=== PATIENT | female | born 1955 | race African-American/Black ===

== ENCOUNTER → 2016-10-19 | Outpatient (CLI) | payer OTHER ==
[~2016-10-19] MED LIST: B-COMPLEX-VITA1 EACH; CALCIUM 600 MG1 EAC2 PO; CLONIDINE HCL0.2 M2 PO; ESTRACE1 MG PO; IBUPROFEN 800800 M1 PO; METFORMIN HCL500 MG; NEURONTIN 300300 M1 PO; PANTOPRAZOLE SO40 M1 PO; SYNTHROID50 MCG PO; TRAZODONE HCL100 MG; VIIBRYD10 MG; VITAMIN E400 UNI6 PO
== END ==
LOC: ULTRA 06:19
DX: D18.09 Hemangioma of other sites (principal)

== ENCOUNTER → 2017-04-26 | Outpatient (CLI) | payer OTHER | LOC: RAD 14:56 | DX: Z12.31 Encounter for screening mammogram for malignant neoplasm of breast (principal) ==

== ENCOUNTER → 2017-05-04 | Outpatient (CLI) | payer OTHER ==
[~2017-05-04] VITALS: Ht 157.5 cm; Wt 88.0 kg
[~2017-05-04] MED LIST changes: +ASPIR 8181 MG PO; +CELEXA20 MG PO; +FLAX SEED OIL1000 MG PO; +VITAMIN A8000 UNI1 PO; +VITAMIN B-12500 MCG PO; +VITAMIN B-6100 MG PO; +[UNRECOGNIZED DRUG - REMARK] PO
--- NOTE | ~2017-05-04 | P ---
[facility] [place] [address] PROCEDURE REPORT Name: RONNI REYES Room #: REG [employer] [facility]#: [id number] Admission: 05/04/17 Attend Phys: Martin Montaño MD Discharge: Date of : 51 Report #: [id number] THIS REPORT FOR: //name// CC: Martin Haynes MD BRIEF HISTORY: The patient is a 61-year-old woman with history of abdominal pain with increased pain in the epigastrium. She also has intermittent solid food dysphagia. It is noted she does use a proton pump inhibitor daily, which controls her typical reflux symptoms. PREOPERATIVE DIAGNOSES: 1. Epigastric pain. 2. Dysphagia. POSTOPERATIVE DIAGNOSES: 1. Diffuse chronic gastritis, nonulcerative 2. Solid food dysphagia. MEDICATIONS: Deep sedation with propofol per anesthesia. SPECIMEN: None. ESTIMATED BLOOD LOSS: None. PROCEDURE: EGD and Pack dilation. FINDINGS: Prior to propofol sedation, procedure of upper endoscopy was reviewed with the patient as well as potential risks and its complications. She indicates she understands and desires to proceed. DESCRIPTION OF PROCEDURE: With the patient in left lateral decubitus position, the Chargebacki video endoscope was inserted in the cervical esophagus under direct vision without difficulty. Examination of this organ through its entire length revealed normal esophageal mucosa down the squamocolumnar junction. Squamocolumnar junction was inspected and noted to be unremarkable. She reports episode of intermittent solid food dysphagia, particularly for breads. No strictures, masses, rings were seen. There was no endoscopic evidence of eosinophilic esophagitis. A hiatus hernia was not seen. Scope was advanced in the stomach, was examined on end view as well as retroflexed views. There was pattern of a diffuse gastritis with erythema mostly in the antrum of the stomach, no ulcers or erosions were seen. Previous biopsies were negative for H. pylori and those were not repeated today. Examination of the remainder of the stomach on end views as well as retroflexed views otherwise revealed normal mucosa other than the antrum. There were no solids or liquids retained in the stomach in this diabetic patient. The pylorus was normal. Duodenal bulb was [facility] [address] [place] [address] PROCEDURE REPORT Name: RONNI RYEES Room #: REG [facility].#: [id number] Admission: 05/04/17 Attend Phys: Martin Montaño MD Discharge: Date of : 51 Report #: [id number] normal. Postbulbar duodenal sweep down to the third portion was unremarkable as well. At that point, the scope was slowly withdrawn and careful circumferential views confirmed the above findings. The patient tolerated the procedure well. Following the procedure, the patient was dilated with passage of a 52-Djiboutian Pack dilator. There was no resistance. CONDITION OF THE PATIENT UPON DISCHARGE: Following procedure, the patient drowsy and arousable, will be discharged home when fully ambulatory. INSTRUCTIONS TO THE PATIENT AND FAMILY AT THE TIME OF DISCHARGE: I do not see evidence of ulcer disease. Her pain is a short lived and lasts only several minutes, this pain may not even be gastrointestinal in etiology. It may be arising from her abdominal wall or neuropathy in a patient with diabetes. She should continue her pantoprazole in lowest dose to control her symptoms. We will empirically give her Levsin sublingual to use as needed for these pains. However, the pains do not last all that long and the Levsin may be of minimal benefit, but will ____ for this patient. If symptoms do not improve, she is to return to see me in followup in the office. Otherwise, she will return to the care of Dr. Cindi Haynes. <ELECTRONICALLY SIGNED> By: Martin Montaño MD 05/04/17 1108 [id number] 0833 Martin Montaño MD /nt
== END | disposition home or self-care (01) ==
LOC: GI 06:30
DX: K29.50 Unspecified chronic gastritis without bleeding (principal); R13.19 Other dysphagia; E11.9 Type 2 diabetes mellitus without complications; K21.9 Gastro-esophageal reflux disease without esophagitis; Z98.890 Other specified postprocedural states; Z87.891 Personal history of nicotine dependence; Z90.710 Acquired absence of both cervix and uterus; Z79.82 Long term (current) use of aspirin
CPT/HCPCS: 62110; 62900

== ENCOUNTER → 2017-11-26 | Outpatient (CLI) | payer OTHER | LOC: ULTRA 06:21 | DX: M79.604 Pain in right leg (principal) ==

== ENCOUNTER 2018-04-29 12:04 | Emergency (ER) | payer OTHER ==
[~2018-04-29] VITALS: Ht 157.5 cm; Wt 68.5 kg
--- NOTE | ~2018-04-29 | EKG ---
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
[2018-04-29 13:21] LABS: ABSOLUTE NEUTROPHILS 3.2 thou/uL (1.4-8.2); BASOPHILS 1.1 % (0.0-2.0); EOSINOPHILS 3.7 % (0.0-3.0); HEMATOCRIT 39.1 % (37.0-47.0); HEMOGLOBIN 13.4 gm/dL (12.0-15.0); LYMPHOCYTES 34.8 % (24.0-44.0); MCH 30.3 pg (26.0-34.0); MCHC 34.2 g/dL (28.0-37.0); MCV 88.6 fL (80.0-100.0); MONOCYTES 7.4 % (1.0-8.0); PLATELET COUNT 330 thou/uL (150-400); RBC 4.42 mil/uL (4.20-5.00); RDW 13.5 % (10.5-14.5)
[2018-04-29 13:25] LABS: CALCIUM 9.9 mg/dL (8.5-10.1); CREATININE 1.1 mg/dL (0.6-1.0); POTASSIUM 4.9 mmol/L (3.5-5.1)
[2018-04-29 13:29] LABS: URINE BILIRUBIN NEGATIVE (Negative); URINE BLOOD NEGATIVE (Negative); URINE CLARITY CLEAR; URINE COLOR YELLOW; URINE GLUCOSE-RANDOM* NEGATIVE (Negative); URINE KETONES NEGATIVE (Negative); URINE LEUKOCYTES-REFLEX NEGATIVE (Negative); URINE NITRITE-REFLEX NEGATIVE (Negative); URINE PROTEIN (DIPSTICK) NEGATIVE (Negative); URINE UROBILINOGEN 0.2 E.U./dl (0.2-1.0)
[2018-04-29 13:31] LABS: ALBUMIN 3.7 g/dL (3.4-5.0); TOTAL BILIRUBIN 0.2 mg/dL (<0.1-1.0); TOTAL PROTEIN 8.1 g/dL (6.4-8.2)
[2018-04-29] MEDS ORDERED: HYDROCODONE-AP1 EAC6 PO (14:33)
== END 2018-04-29 15:45 | disposition home or self-care (01) ==
LOC: ER 12:04
PROVIDERS: Physician Assistant
DX: R10.32 Left lower quadrant pain (principal); R11.0 Nausea; Z90.710 Acquired absence of both cervix and uterus

== ENCOUNTER 2018-05-04 10:55 | Inpatient (IN) | payer OTHER ==
[~2018-05-04] VITALS: Ht 157.5 cm; Wt 92.6 kg
--- NOTE | ~2018-05-04 | EKG ---
[address] [address] ELECTROCARDIOGRAM REPORT Name: RONNI REYES Room #: 227-P ADM IN M.R.#: [id number] Admission: 05/04/18 Attend Phys: Saqib Chavez MD Discharge: Date of : 51 Report #: [id number] THIS REPORT FOR: //name// [facility] ED Test Date: 2018-05-04 Test Time: 11:30:27 Pat Name: RONNI REYES Department: Room: 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
[~2018-05-04 10:55] MED LIST changes: +HYDROCODONE-AP1 EAC6 PO
[2018-05-04 11:00] VITALS: BP 170/84
[2018-05-04 11:21] LABS: URINE BILIRUBIN NEGATIVE (Negative); URINE BLOOD NEGATIVE (Negative); URINE CLARITY CLEAR; URINE COLOR YELLOW; URINE GLUCOSE-RANDOM* NEGATIVE (Negative); URINE KETONES NEGATIVE (Negative); URINE LEUKOCYTES-REFLEX NEGATIVE (Negative); URINE NITRITE-REFLEX NEGATIVE (Negative); URINE PROTEIN (DIPSTICK) NEGATIVE (Negative); URINE SPECIFIC GRAVITY 1.015 (1.005-1.035); URINE UROBILINOGEN 0.2 E.U./dl (0.2-1.0)
[2018-05-04 11:52] LABS: ABSOLUTE NEUTROPHILS 2.8 thou/uL (1.4-8.2); BASOPHILS 1.9 % (0.0-2.0); EOSINOPHILS 5.2 % (0.0-3.0); HEMATOCRIT 38.5 % (37.0-47.0); HEMOGLOBIN 13.1 gm/dL (12.0-15.0); LYMPHOCYTES 29.5 % (24.0-44.0); MCH 29.8 pg (26.0-34.0); MCHC 33.9 g/dL (28.0-37.0); MCV 87.7 fL (80.0-100.0); MONOCYTES 8.1 % (1.0-8.0); PLATELET COUNT 344 thou/uL (150-400); POLYS 55.3 % (36.0-66.0); RBC 4.39 mil/uL (4.20-5.00); RDW 13.7 % (10.5-14.5); WBC 5.1 thou/uL (4.0-11.0)
[2018-05-04 11:55] LABS: CALCIUM 9.4 mg/dL (8.5-10.1); CREATININE 1.1 mg/dL (0.6-1.0); POTASSIUM 4.5 mmol/L (3.5-5.1)
[2018-05-04 12:01] LABS: ALBUMIN 3.7 g/dL (3.4-5.0); TOTAL BILIRUBIN 0.4 mg/dL (<0.1-1.0); TOTAL PROTEIN 8.3 g/dL (6.4-8.2)
[2018-05-04 13:48] VITALS: BP 166/86
[2018-05-04 14:08] VITALS: BP 164/79
[2018-05-04 14:45] VITALS: BP 135/82
[2018-05-04 20:00] VITALS: BP 186/94
[2018-05-05 05:34] LABS: HEMATOCRIT 36.6 % (37.0-47.0); HEMOGLOBIN 12.4 gm/dL (12.0-15.0); MCH 30.1 pg (26.0-34.0); MCHC 33.9 g/dL (28.0-37.0); MCV 88.9 fL (80.0-100.0); RBC 4.12 mil/uL (4.20-5.00); RDW 13.8 % (10.5-14.5); WBC 5.9 thou/uL (4.0-11.0)
[2018-05-05 05:41] LABS: CALCIUM 8.8 mg/dL (8.5-10.1); CREATININE 1.2 mg/dL (0.6-1.0); POTASSIUM 4.8 mmol/L (3.5-5.1)
[2018-05-05 08:00] VITALS: BP 158/95
[2018-05-05 13:55] VITALS: BP 153/80
[2018-05-05 21:00] VITALS: BP 164/83
[2018-05-06 07:29] LABS: HEMATOCRIT 34.4 % (37.0-47.0); MCHC 34.8 g/dL (28.0-37.0); RBC 3.86 mil/uL (4.20-5.00); RDW 13.8 % (10.5-14.5); WBC 8.7 thou/uL (4.0-11.0)
[2018-05-06 07:51] LABS: CALCIUM 8.7 mg/dL (8.5-10.1); CREATININE 1.2 mg/dL (0.6-1.0)
[2018-05-06 08:28] VITALS: BP 153/83
[2018-05-06 21:12] VITALS: BP 185/93
[2018-05-06 21:48] VITALS: BP 142/80
[2018-05-07 07:30] VITALS: BP 173/72
[2018-05-07] MEDS ORDERED: FLEXERIL PO (13:51)
[2018-05-07] MEDS ORDERED: PERCOCET PO (13:52)
[2018-05-07] MEDS ORDERED: MIRALAX17 GM PO (13:52)
[2018-05-07] MEDS ORDERED: PREDNISONE 20 M20 MG PO (13:53)
[2018-05-07 14:16] VITALS: BP 173/72
== END 2018-05-07 15:56 | disposition home or self-care (01) | DRG 392 ==
LOC: ER 10:55 → SICU 13:16 → EROBS 13:16 → 4W 14:16 → SICU 05-05 13:45 → ENTRNSPT 05-07 15:07 → EDTRNSPTSTS 05-07 15:18 → SICU 05-07 15:56
PROVIDERS: Hospitalist; Nurse Practitioner Family
DX: R10.32 Left lower quadrant pain (principal); E11.9 Type 2 diabetes mellitus without complications; I10 Essential (primary) hypertension; M54.5 Low back pain; F32.9 Major depressive disorder, single episode, unspecified; M25.552 Pain in left hip; D18.03 Hemangioma of intra-abdominal structures; K21.9 Gastro-esophageal reflux disease without esophagitis; E03.9 Hypothyroidism, unspecified; Z87.891 Personal history of nicotine dependence; Z23 Encounter for immunization; Z80.0 Family history of malignant neoplasm of digestive organs; Z90.710 Acquired absence of both cervix and uterus; Z79.899 Other long term (current) drug therapy; Z79.82 Long term (current) use of aspirin
CPT/HCPCS: 10040; 15002

== ENCOUNTER → 2018-06-26 | Outpatient (CLI) | payer OTHER ==
[~2018-06-26] VITALS: Ht 157.5 cm; Wt 87.1 kg
[~2018-06-26] MED LIST changes: +FLEXERIL PO; +LIDOCAINE1 EACH TRANSDERM; +LOSARTAN POTASS50 MG PO; +LYRICA 50 MG50 MG PO; +MIRALAX17 GM PO; +PERCOCET PO; +PREDNISONE 20 M20 MG PO
--- NOTE | ~2018-06-26 | HPC ---
[facility] [address] [place] [address] PAIN MANAGEMENT CONSULTATION Name: RONNI REYES Room #: REG [facility] Madi.#: [id number] Admission: 06/26/18 Attend Phys: Wilbert Saldana DO Discharge: Date of : 51 Report #: [id number] THIS REPORT FOR: //name// CC: Wilbert Haynes DATE OF SERVICE: 06/26/2018 CHIEF COMPLAINT: Low back pain and left lower extremity pain with paresthesias. HISTORY OF PRESENT ILLNESS: As you know, the patient is a 62-year-old female who reports acute onset of low back pain, left buttock, posterolateral thigh pain radiating down the leg that began in 04/2018. She denies specific injury or trauma that may have led to symptom occurrence. The patient states her pain became intense enough that she was seen at the Emergency Department at [facility]. Workup indicated that her symptoms were likely related to lumbar radiculopathy. She underwent MRI of the lumbar spine, which showed mild lumbar spine degenerative changes most significant at the L4-L5 level with minimally asymmetric disk bulging on the left, neural foramen were well maintained, central canal was only mildly narrowed. This was believed to be a source of the patient's symptoms. She has trialed conservative medical therapy, which has been ineffective at treating symptoms. Due to lack of improvement, the patient was subsequently referred to our clinic to discuss the possibility of more aggressive treatment options for lumbar radicular symptoms. The patient indicates today pain is continuous and constant, describes the pain as shooting, sharp, stabbing, numbness, tingling, burning and electrical in sensation. She places current pain score 5/10, daily average at 8/10 and worst pain has been is 8/10. The patient states that walking, standing and movement exacerbates symptoms, nothing appears to improve pain. She has been referred to our service to discuss possible treatment for lumbar radicular symptoms. PAST MEDICAL HISTORY: 1. Gastroesophageal reflux disease. 2. Hypothyroidism. 3. Depression. 4. Diabetes mellitus type 2. 5. Peptic ulcer disease. PAST SURGICAL HISTORY: Hysterectomy. SOCIAL HISTORY: The patient denies tobacco, alcohol, IV or illicit drug use. 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 She has been out of the work force for nearly 6 weeks. She is trying to obtain the disability income. She is not in litigation in regards to pain. [address] [address] PAIN MANAGEMENT CONSULTATION Name: RONNI REYES Room #: REG CLI [facility]#: [id number] Admission: 06/26/18 Attend Phys: Wilbert Saldana DO Discharge: Date of : 51 Report #: [id number] REVIEW OF SYSTEMS: Positive for decrease in appetite, fatigue and weakness, headaches, night sweats, chronic sinus problems with rhinitis, nosebleeds, chest pain, loss of appetite, nausea, depression, insomnia, low back pain, left lower extremity pain and paresthesias. All other review of systems negative per 12-point review of systems other than those listed in the history of present illness. Pain impact score 40/70 indicating moderate interference of daily activities secondary to pain. ALLERGIES: No known drug allergies. CURRENT MEDICATIONS: Losartan 50 mg once a day, prednisone 20 mg per day, MiraLax 17 grams per day, oxycodone 5/325 one tab every 6 hours p.r.n. for pain, Allergy Relief 1 tab per day, aspirin 81 mg per day, flaxseed oil 1000 mg per day, citalopram 40 mg per day, vitamin A 8000 units per day, vitamin B6 100 mg per day, cyanocobalamin 500 mcg per day, vitamin E complex 1 tab per day, calcium carbonate 1 tab per day, clonidine 0.2 mg p.o. at bedtime, levothyroxine 50 mcg per day and pantoprazole 40 mg per day. IMAGING: MRI of the lumbar spine obtained on 05/06/2018 shows T12-L1 unremarkable. L2-L3 shows no focal disk protrusion, no central canal neural foraminal stenosis, there is mild ligamentum flavum hypertrophy, minimal facet degenerative changes. L3-L4 shows mild disk bulge, mild facet arthropathy, bilateral ligamentum flavum hypertrophy, no central canal neural foraminal stenosis. L4-L5, diffuse disk bulging, minimally asymmetric to the left, neural foramen are well maintained, central canal is minimally narrowed to 10 mm at the lower levels of normal, bilateral facet degenerative changes noted, ligamentum flavum hypertrophy, small synovial cyst at bilateral levels. L5-S1, no focal disk protrusion, no central canal neural foraminal stenosis. PHYSICAL EXAMINATION: VITAL SIGNS: Blood pressure 136/73, pulse 86, respiratory rate 16 and unlabored. The patient is 98% on room air. Height 5 feet 2 inches tall, weight 192 pounds and BMI calculated 35.1. GENERAL: Well-developed, well-nourished, well-hydrated exogenously obese 62-year-old female appearing stated age, placing current pain score around 6/10. HEENT: Normocephalic and atraumatic. Pupils are equal, round and reactive to light. Extraocular muscles are intact. Sclerae are nonicteric without injection. NEUROLOGIC: Cranial nerves 2-12 grossly intact. Speech is fluent. The patient deemed a fair historian. LUNGS: Clear, no wheeze, rhonchi or rales. CARDIOVASCULAR: Regular. No appreciable gallop or rub. ABDOMEN: Soft, obese, nontender, nondistended, normoactive bowel sounds. [facility] [address] [place] [address] PAIN MANAGEMENT CONSULTATION Name: RONNI REYES Room #: REG [facility].#: [id number] Admission: 06/26/18 Attend Phys: Wilbert Saldana DO Discharge: Date of : 51 Report #: [id number] EXTREMITIES: Show no clubbing, no cyanosis and no edema. MUSCULOSKELETAL: Lower extremity strength appears equal and symmetrical 5/5, intact to light touch from L1 through S2 dermatomes. Seated straight leg raising is negative. Supine straight leg raising is mildly positive on the left. Edwin's test is negative. Modified Gaenslen's positive for axial low back pain. Ankle clonus is negative. Babinski is negative. Gait is antalgic favoring the left lower extremity over right. The patient is using a roller walker that is unprescribed for ambulation. Muscle bulk and tone is symmetrical in the lower extremities. Lumbar provocation testing including extension, rotation and lateral flexion all intensify axial back pain and no radiation of symptoms. ASSESSMENT: 1. Suspected lumbar radiculopathy. 2. Mildly displaced lumbar intervertebral disk with radiculopathy. 3. Mild lumbosacral spondylosis with radiculopathy. 4. Mild degeneration of the lumbar spine. 5. Chronic intractable pain. PLAN: 1. The patient has been referred to our service for evaluation for suspected lumbar radiculopathy. The patient has mild changes in the lumbar spine, the most significant being at the L4-L5 level, which shows a diffuse disk bulging and a minimal asymmetrical finding on the left. There was also noted some arthritic changes that have been longstanding as well as ligamentum flavum hypertrophy, which is also longstanding. Based on the physical exam and history the patient is providing as well as the distribution of symptoms, she appears to be suffering from lumbar radicular symptoms. She has been evaluated both at the Emergency Department and through her PCP and has noted no improvement in symptoms. She was subsequently referred to our service to discuss the possible treatment options for lumbar radicular symptoms. We discussed the following with the patient today. We discussed physical therapy, stretching exercise, core strengthening and a concerted effort at weight loss. We discussed medication management adding neuropathic pain medications to her current medication regimen. We discussed epidural injection under fluoroscopic guidance as a treatment option. Given the findings on MRI, she is not a surgical candidate. After reviewing the risks and benefits of all proposed treatment options, the patient chose to move forward with a lumbar epidural injection under fluoroscopic guidance. 2. The patient was advised that third alliance party payer restrictions require that authorization be obtained before the patient could undergo an epidural injection. Authorization could take anywhere from 4-7 working days. We will begin this process immediately and contact the patient once we have this authorization, so she can undergo the first in the series of epidural injections. [address] [address] PAIN MANAGEMENT CONSULTATION Name: RONNI REYES Room #: REG CLI [facility]#: [id number] Admission: 06/26/18 Attend Phys: Wilbert Saldana DO Discharge: Date of : 51 Report #: [id number] 3. The patient will be started on samples of Lyrica. We have given her a 50 mg tablet. She is to take 1 tab p.o. at bedtime, one hour before bedtime for the next 3 nights, if no improvement in symptoms and no side effects, she is to escalate dose to 100 mg or 2 tablets at night, one hour before bedtime. No improvement in symptoms and no side effects, then escalate to 150 mg. She was given samples to be able to titrate as directed. The patient was advised to watch for side effects of this medication including somnolence, decreased mental acuity, disorientation and confusion as well as increasing depression. If she notes any side effects, discontinue immediately. If no improvement in symptoms, continue the titration as directed. 4. We will see the patient back in followup visit once we have achieved authorization for the patient to undergo epidural injection under fluoroscopic guidance to address lumbar radicular symptoms. 5. We wish to thank Dr. Haynes for the referral of this patient to our clinic. We will keep you apprised of her response to treatment as we address her lumbar radicular symptoms. We will provide you with any suggested changes in medication therapy as necessary. Again, we wish to thank you for the opportunity to see the patient in consultation. By: 1008 1134 Wilbert Saldana DO /giuliana
[2018-06-26 08:49] VITALS: BP 136/73
== END ==
LOC: PAIN 07:56
DX: M47.27 Other spondylosis with radiculopathy, lumbosacral region (principal); M51.16 Intervertebral disc disorders with radiculopathy, lumbar region; G89.4 Chronic pain syndrome; K21.9 Gastro-esophageal reflux disease without esophagitis; E03.9 Hypothyroidism, unspecified; E11.9 Type 2 diabetes mellitus without complications

== ENCOUNTER → 2018-06-28 | Outpatient (CLI) | payer OTHER ==
[~2018-06-28] VITALS: Ht 157.5 cm; Wt 87.1 kg
--- NOTE | ~2018-06-28 | PATH ---
[facility] [address] [place] [address] PATHOLOGY RPT PROCEDURE Name: RONNI REYES Room #: REG [facility] M.R.#: [id number] Admission: 06/28/18 Date of : 51 Discharge: Report #: [id number] Path Case #: [id number] [facility] Accession Number: [id number] . 01 Material submitted: . MID ASCENDING COLON POLYP X3 . 01 Clinical history: . Pre-OP DX: Family HX colon cancer . 02 Diagnosis: Polyp x 3, mid ascending colon polyp, endoscopic biopsy: - Tubular adenoma in two fragments. - Negative for high grade dysplasia. (IUV/db; 07/01/18) LBQ/07/01/2018 . 02 Electronically signed: . Kanchan Marcus MD, Pathologist NPI- [id number] . 01 Gross description: . Received in formalin labeled "Ronni Reyes, mid ascending polyp," are 5 segments of bill soft tissue measuring 1.5 x 1.3 x 0.3 cm in aggregate dimensions and ranging from 0.3 to 0.7 cm in maximum dimension. The specimen is submitted entirely in cassette A1. (TSD; 06/28/2018) TOB/TOB . 02 Pathologist provided ICD-10: D12.2 . 02 CPT . 913488 Specimen Comment: A courtesy copy of this report has been sent to Specimen Comment: [phone], . Specimen Comment: Report sent to / DR LAWLER Performed at: [address], [place], [place] [id number] MD Julius Mccrary MD Phone: [phone] Performed at: [address] [id number] MD Kanchan Marcus MD Phone: [phone]
--- NOTE | ~2018-06-28 | P ---
[facility] [place] [address] PROCEDURE REPORT Name: RONNI REYES Room #: REG [facility]#: [id number] Admission: 06/28/18 Attend Phys: Martin Montaño MD Discharge: Date of : 51 Report #: [id number] THIS REPORT FOR: //name// CC: Martin Haynes MD DATE OF SERVICE: 06/28/2018 BRIEF HISTORY: The patient is a 62-year-old woman with strong family history of colon cancer. Her father had colon cancer when he was in his 50s, 3 aunts have had colon cancer. She also has multiple cousins that have had colon cancer. In addition, her sister had ovarian cancer. As best I know, there has been no genetic testing in the family. PREOPERATIVE DIAGNOSIS: Strong family history of colon cancer. POSTOPERATIVE DIAGNOSIS: Diminutive polyps x 3, mid ascending colon. MEDICATIONS: Deep sedation with propofol per anesthesia. SPECIMEN: Mid ascending colon polyps x 3. ESTIMATED BLOOD LOSS: 3 mL PROCEDURE: Colonoscopy to cecum and terminal ileum with biopsy. FINDINGS: Prior to propofol sedation, procedure of colonoscopy was discussed with the patient as well as potential risks and its complications. She indicates she understands and desires to proceed. DESCRIPTION OF PROCEDURE: With the patient in lateral decubitus position, digital examination was completed, which revealed no abnormalities. Subsequently, the Olympus video colonoscope was introduced in the rectum, advanced under direct vision to the cecum, done with minimal difficulty. The cecum was identified by the ileocecal valve and the appendiceal orifice. I was able to visualize the distal segment of terminal ileum, which was inspected and noted to be unremarkable. At that point, the scope was slowly withdrawn and careful circumferential views were obtained including retroflexing the scope in the ascending colon. Upon slow withdrawal of the scope, there were some limitations of prep. There was some liquidy material and particulate matter scattered throughout the colon. However, with extensive irrigation and suctioning, we were able to obtain a good prep overall. The mucosa was within normal limits, normal vascular pattern, normal light reflex. In the mid ascending colon, 3 diminutive polyps were seen. All 3 were easily removed with biopsy forceps. The scope was further withdrawn and no additional neoplastic [facility] [address] [place] [address] PROCEDURE REPORT Name: RONNI REYES Room #: REG [facility].#: [id number] Admission: 06/28/18 Attend Phys: Martin Montaño MD Discharge: Date of : 51 Report #: [id number] lesions were seen. No additional polyps were seen. The mucosa through the remainder of the colon was normal. Upon retroflexion in the rectum, no abnormalities were seen. Scope was withdrawn. The patient tolerated the procedure. CONDITION OF THE PATIENT UPON DISCHARGE: Following procedure, the patient drowsy, aroused, conversant and will be discharged home when fully ambulatory. INSTRUCTIONS TO THE PATIENT AND FAMILY AT THE TIME OF DISCHARGE: Three diminutive polyps identified and removed today. We will follow up on the path. However, in view of her strong family history, I would suggest she return in 3 years for a colonoscopy. We did discuss the role of genetic testing. This is the first time this patient has had polyps. Unfortunately, with regards to genetics, none of the cancer patients have survived. If her polyp count continues to rise or other family members have high numbers of polyps, genetic testing in that individual may be helpful. She will return to care of Dr. Cindi Haynes and return to see me as needed. Last colonoscopy was 4-1/2 years ago. Withdrawal time from the cecum including cleanup was 19 minutes 58 seconds. <ELECTRONICALLY SIGNED> By: Martin Montaño MD 06/29/18 1030 0941 1030 Martin Montaño MD /nt
== END | disposition home or self-care (01) ==
LOC: GI 05:54
DX: Z12.11 Encounter for screening for malignant neoplasm of colon (principal); Z80.0 Family history of malignant neoplasm of digestive organs; D12.2 Benign neoplasm of ascending colon; K21.9 Gastro-esophageal reflux disease without esophagitis; E11.9 Type 2 diabetes mellitus without complications; E05.90 Thyrotoxicosis, unspecified without thyrotoxic crisis or storm; Z90.710 Acquired absence of both cervix and uterus; Z98.890 Other specified postprocedural states; Z79.899 Other long term (current) drug therapy; Z87.891 Personal history of nicotine dependence; Z80.41 Family history of malignant neoplasm of ovary
CPT/HCPCS: 62110; 62900

== ENCOUNTER → 2018-07-02 | Outpatient (CLI) | payer OTHER ==
[~2018-07-02] VITALS: Ht 157.5 cm; Wt 86.3 kg
--- NOTE | ~2018-07-02 | HPC ---
[facility] [place] [address] PAIN MANAGEMENT CONSULTATION Name: RONNI REYES Room #: REG [facility] MAbner.#: [id number] Admission: 07/02/18 Attend Phys: Wilbert Saldana DO Discharge: Date of : 51 Report #: [id number] THIS REPORT FOR: //name// CC: Wilbert Haynes MD DATE OF SERVICE: 07/02/2018 REFERRING PHYSICIAN: Cindi Haynes MD CHIEF COMPLAINT: Low back pain, left lower extremity pain and paresthesias. HISTORY OF PRESENT ILLNESS: As you know, the patient is a 62-year-old female who reports acute onset of low back pain, left buttock and posterolateral thigh pain radiating down the leg began 04/2018. Denies any specific injury or trauma that may have led to symptom recurrence. She was seen in the Emergency Department at [facility] for ongoing pain issues and subsequently referred to our clinic to discuss options for treatment for suspected lumbar radiculopathy. She was seen in our clinic, 06/26/2018, diagnosed with lumbar radiculopathy, mildly displaced lumbar intervertebral disks, mild lumbosacral spondylosis and mild degeneration of lumbar spine. At that visit, we discussed options for treatment including physical therapy, stretching exercise, core strengthening, medication management, epidural injections and ultimately surgical options. The patient chose to move forward with an epidural injection, but due to third constitution party payer restrictions, we are unable to provide that injection at that visit. We did start the patient on Lyrica 50 mg dose at night with 100% improvement in overall pain. Unfortunately, the patient is reporting elevated blood pressure with the use of medication, though this is not a standard finding from a side effect profile. She discontinued the Lyrica and apparently her blood pressure did improve. Unfortunately, her pain did return. She returns today in followup visit to discuss the possibility of undergoing epidural injection or changes in medication therapy. ALLERGIES: No known drug allergies. CURRENT MEDICATIONS: Losartan, prednisone, MiraLax, oxycodone, Allergy Relief, aspirin, flaxseed oil, citalopram, vitamin A, vitamin B6, cyanocobalamin, vitamin E, calcium carbonate, clonidine, levothyroxine and pantoprazole. SOCIAL HISTORY: The patient denies tobacco, alcohol, IV or illicit drug use. 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 She is unaccompanied today. IMAGING: [place] [address] PAIN MANAGEMENT CONSULTATION Name: RONNI REYES Room #: REG [facility]#: [id number] Admission: 07/02/18 Attend Phys: Wilbert Saldana DO Discharge: Date of : 51 Report #: [id number] PHYSICAL EXAMINATION: VITAL SIGNS: Blood pressure 158/73, pulse 85, respiratory rate 20, unlabored; the patient is 97% on room air. Height 5 feet 2 inches tall, weight 190.2 pounds, BMI calculated 34.8. GENERAL: Well-developed, well-nourished, well-hydrated exogenously obese 62-year-old female appearing stated age, placing current pain score at around 5/10. HEENT: Normocephalic, atraumatic. Pupils equal, round, reactive to light. Extraocular muscles are intact. EXTREMITIES: Show no clubbing, no cyanosis, no edema. MUSCULOSKELETAL: Lower extremity strength symmetrical 5/5, intact to light touch from L1 through S2 dermatomes. Seated straight leg raising negative. Supine straight leg raising mildly positive on the left. ASSESSMENT: 1. Lumbar radiculopathy. 2. Mildly displaced lumbar intervertebral disk with radicular symptoms. 3. Mild lumbosacral spondylosis with radiculopathy. 4. Mild degeneration of lumbar spine. 5. Chronic intractable pain. PLAN: 1. The patient returns today in followup visit having noted excellent benefit with Lyrica near 100% improvement in overall pain, but unfortunately she had an elevated rise in blood pressure. She attributes to the medication. She subsequently discontinued the medication and her blood pressure did "normalize." The patient's blood pressure is still elevated today 158/73, but down from her reported systolic pressure of 200. We have recommended the patient remain off the Lyrica, but unfortunately she was seeing good benefit from pain standpoint with medication. We discussed other options for treatment today including rotating medication to gabapentin in place of the Lyrica, which would likely provide a similar improvement or looking towards the preapproved epidural injection. The patient chose to move forward with gabapentin therapy. She wants to hold off on undergoing epidural injection at this juncture. She wishes to try the gabapentin as she noted excellent benefit with Lyrica. She is hopeful to be able to initiate the medication without side effects. We cautioned the patient about side effects from gabapentin today. She was given information in written form about gabapentin side effects. 2. The patient was started on gabapentin 300 mg dose at night. This is a rough equivalency of 50 mg of Lyrica. The patient will start at the 300 mg dose this evening, continue for 3 nights. No improvement in symptoms and no side effects, I would recommend escalating it to 600 mg dose. If the patient is experiencing side effects at 300 mg dose, she is not to escalate further, she should discontinue the medication entirely. If she is noticing some improvement in [facility] [address] [place] [address] PAIN MANAGEMENT CONSULTATION Name: RONNI REYES Room #: REG [facility] MAbnerR.#: [id number] Admission: 07/02/18 Attend Phys: Wilbert Saldana DO Discharge: Date of : 51 Report #: [id number] symptoms and no side effects, I would recommend escalating to 600 mg. She was given a prescription of gabapentin 300 mg dose, #60 with no refills. 3. We will see the patient back in followup visit, depending on the efficacy of the gabapentin. If she notes good effects with the gabapentin at low dosing, we would be willing to provide the patient with refill of the medication for the foreseeable future. If no improvement in symptoms or side effects, she cannot tolerate, we will see her back to undergo the epidural injection, we have preapproved. By: 1142 [id number] Wilbert Saldana DO /nt
[2018-07-02 10:32] VITALS: BP 158/73
== END ==
LOC: PAIN 10:08
DX: M47.27 Other spondylosis with radiculopathy, lumbosacral region (principal); M51.16 Intervertebral disc disorders with radiculopathy, lumbar region; G89.4 Chronic pain syndrome; Z79.899 Other long term (current) drug therapy

== ENCOUNTER → 2018-07-24 | Outpatient (CLI) | payer OTHER ==
[~2018-07-24] VITALS: Ht 157.5 cm; Wt 84.3 kg
--- NOTE | ~2018-07-24 | HPC ---
[facility] [place] [address] PAIN MANAGEMENT CONSULTATION Name: RONNI REYES Room #: REG [facility] MAbner.#: [id number] Admission: 07/24/18 Attend Phys: Wilbert Saldana DO Discharge: Date of : 51 Report #: [id number] THIS REPORT FOR: //name// CC: Wilbert Haynes MD DATE OF SERVICE: 07/24/2018 REFERRING PHYSICIAN: Cindi Haynes M.D. CHIEF COMPLAINT: Low back pain, left lower extremity pain and paresthesias. HISTORY OF PRESENT ILLNESS: As you know, the patient is a 62-year-old female who had an acute onset of low back pain, left buttock and posterolateral thigh pain began in April 2018. She denied any specific injury or trauma. She was seen in consultation per the request of her primary care physician and started on medication management in the form of Lyrica with 100% improvement in overall pain. Unfortunately, coverage was not available for this medication on her current insurer. We made adjustments with 2 gabapentin but she is reporting side effects that she can tolerate as somnolence, decreased mental acuity, disorientation, confusion and lack of efficacy. She returns today in followup visit to undergo epidural injection under fluoroscopic guidance as she has noted medication management unsuccessful since the discontinuation of the Lyrica. ALLERGIES: No known drug allergies. CURRENT MEDICATIONS: Losartan, MiraLax, oxycodone, Allergy Relief, aspirin, flaxseed oil, citalopram, vitamin A, vitamin B6, cyanocobalamin, vitamin E, calcium carbonate, clonidine, levothyroxine and pantoprazole. SOCIAL HISTORY: The patient denies tobacco, alcohol, IV or illicit drug use. 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 She has not been working over the last 8 weeks. She is unaccompanied today. IMAGING DATA: No new imaging available. PHYSICAL EXAMINATION: VITAL SIGNS: Blood pressure 146/85, pulse 95 AND respiratory rate 16 and unlabored. The patient is 100% on room air. Height 5 feet 2 inches tall, weight 185.8 pounds and BMI calculated 34.0. GENERAL: Well-developed, well-nourished, well-hydrated, exogenously obese 62-year-old female appearing stated age, placing current pain score at 5/10. HEENT: Normocephalic and atraumatic. Pupils equal, round and reactive to light. Extraocular muscles are intact. Sclerae nonicteric without injection. NEUROLOGICAL: Cranial nerves 2 through 12 grossly intact. Speech is fluent. [address] [address] PAIN MANAGEMENT CONSULTATION Name: RONNI REYES Room #: REG [facility]#: [id number] Admission: 07/24/18 Attend Phys: Wilbert Saldana DO Discharge: Date of : 51 Report #: [id number] EXTREMITIES: Show no clubbing, no cyanosis and no edema. MUSCULOSKELETAL: Lower extremity strength is symmetrical again today 5/5. She is intact to light touch from L1 through S2 dermatomes. Seated straight leg raising negative. Supine straight leg raising mildly positive left. Muscle bulk and tone is symmetrical in comparing left lower extremity over right. Gait is normal. ASSESSMENT: 1. Lumbar radiculopathy. 2. Mildly displaced lumbar intervertebral disk with radicular symptoms. 3. Mild lumbosacral spondylosis with radiculopathy. 4. Mild degenerative changes of the lumbar spine. 5. Chronic intractable pain. PLAN: 1. The patient returns today in followup visit to undergo lumbar epidural injection under fluoroscopic guidance. She has been advised of the risks and benefits of this procedure. These risks include but are not necessarily limited to bleeding, bruising, infection, worsening pain, no relief of pain, also risk of temporary or permanent muscle weakness, temporary or permanent nerve damage, possible paralysis and . The patient states understood and wished to proceed. 2. The patient and I did discuss her issues with gabapentin. It is unfortunate that we cannot receive coverage for the Lyrica as the patient noted excellent benefit with this medication. No side effects and 100% improvement in symptoms. We would recommend the patient to contact her third green party payer to discuss the possibility of coverage of this more effective agent. 3. We will see the patient back in followup visit on an as needed basis for next in a series of epidural injections. PROCEDURE NOTE DESCRIPTION OF PROCEDURE: L5-S1 left paramedian epidural steroid injection under fluoroscopic guidance. This is the first procedure of the first series that the patient is undergoing. After obtaining written consent, the patient was taken back to the fluoroscopy suite, placed in a prone position with pillow under the abdomen to decrease lumbar lordosis. The skin overlying the lumbosacral area was then prepped and draped in aseptic fashion. The L5-S1 vertebral interspace was then identified by AP fluoroscopy. The skin and subcutaneous tissue overlying the target site of injection was anesthetized with 3 mL 1% lidocaine. A 20-gauge 4-1/2 inch Tuohy needle was then advanced under fluoroscopic guidance towards the epidural space using a left paramedian approach. The epidural space [address] [address] PAIN MANAGEMENT CONSULTATION Name: RONNI RYEES Room #: REG [facility]#: [id number] Admission: 07/24/18 Attend Phys: Wilbert Saldana DO Discharge: Date of : 53 Report #: [id number] was identified using loss of resistance to air technique. After negative aspiration for heme or cerebrospinal fluid, a total of 1 mL of Omnipaque was injected. A lumbar epidurogram was confirmed using both AP and lateral fluoroscopy. After negative aspiration for heme or cerebrospinal fluid, 5 mL of a solution containing 2 mL 40 mg per mL, 80 mg total triamcinolone, 3 mL lidocaine 1% was injected in increments. Contrast spread was noted posterior epidural space. The needle was then retracted approximately half way and needle tract flushed with 1 mL of 1% lidocaine. Needle was then removed. There were no apparent sensory or motor deficits in the lower extremity following the procedure. A sterile bandage was placed over the injection site. The heart rate, pulse, oximetry and blood pressure were continuously monitored after the procedure. There were no apparent complications. The patient tolerated the procedure well and was carefully escorted to the recovery room in stable condition. There were no apparent complications. After meeting discharge criteria, the patient was then discharged home. By: 0726 0744 Wilbert Saldana DO /nt
[2018-07-24 11:09] VITALS: BP 146/85
--- NOTE | 2018-07-24 11:23 | NUR ---
Pain Clinic Assessment: 1. History of Osteoarthritis: low back History of Rheumatoid Arthritis: Not Applicable 2. Height: 5 ft. 2 in. 157.5 cm. Weight: 185.8 lb. oz. 84.278 kg. Patient's BMI: 34.0 3. Vital Signs: BP: 146/85 Pulse: 95 Resp: 16 Temp: 02 Sat: 100 ECG Mon: 4. Pain Intensity: 5 5. Fall Risk: Dizziness: N Needs help standing or walking: N Fallen in the last 3 months: N Fall risk comments: 6. Patient on Blood Thinner: None 7. History of Hypertension: Y 8. Opioid Therapy greater than 6 weeks: Y Opiate Contract Signed: 9. Risk Assessment Tool Provided: 10. Functional Assessment Tool: 11. Recreational Drug Use: Never Drug Type: Tobacco Use: Former Smoker Tobacco Type: Amount or Packs/day: How Many Years: Alcohol Use: Yes Frequency: Quant:
== END | disposition home or self-care (01) ==
LOC: PAIN 08:48
DX: M54.16 Radiculopathy, lumbar region (principal); M54.5 Low back pain; E11.10 Type 2 diabetes mellitus with ketoacidosis without coma; Z79.899 Other long term (current) drug therapy; Z79.4 Long term (current) use of insulin

== ENCOUNTER 2018-07-27 14:29 | Inpatient (IN) | payer OTHER ==
[~2018-07-27] VITALS: Ht 157.5 cm; Wt 81.3 kg
[2018-07-27] VITALS (15 sets, daily range): BP systolic 113–150; BP diastolic 57–81
[2018-07-27 15:52] LABS: ABSOLUTE NEUTROPHILS 5.6 thou/uL (1.4-8.2); EOSINOPHILS 0.9 % (0.0-3.0); HEMATOCRIT 39.8 % (37.0-47.0); HEMOGLOBIN 13.6 gm/dL (12.0-15.0); LYMPHOCYTES 18.7 % (24.0-44.0); MCH 30.4 pg (26.0-34.0); MCHC 34.1 g/dL (28.0-37.0); MONOCYTES 6.4 % (1.0-8.0); PLATELET COUNT 355 thou/uL (150-400); RBC 4.47 mil/uL (4.20-5.00); RDW 14.4 % (10.5-14.5); WBC 7.7 thou/uL (4.0-11.0)
[2018-07-27 15:55] LABS: URINE BILIRUBIN NEGATIVE (Negative); URINE CLARITY CLEAR; URINE COLOR YELLOW; URINE GLUCOSE-RANDOM* 3+ (Negative); URINE KETONES 2+ (Negative); URINE PROTEIN (DIPSTICK) NEGATIVE (Negative); URINE SPECIFIC GRAVITY <= 1.005 (1.005-1.035)
[2018-07-27 15:56] LABS: URINE BLOOD NEGATIVE (Negative); URINE LEUKOCYTES-REFLEX NEGATIVE (Negative); URINE NITRITE-REFLEX NEGATIVE (Negative); URINE UROBILINOGEN 0.2 E.U./dl (0.2-1.0)
[2018-07-27 16:03] LABS: BE(vivo) -13.9 mmol/L (-2 to +3); HCO3 10.8 mmol/L (22.0-26.0); PCO2 VENOUS 23.4 mmHg (41.0-51.0); PO2 VENOUS 205.7 mmHg (35.0-45.0)
[2018-07-27 16:11] LABS: ANION GAP 23 mmol/L (7-16); BUN 32 mg/dL (7-18); CALCIUM 9.5 mg/dL (8.5-10.1); CHLORIDE 91 mmol/L (98-107); CO2 13 mmol/L (21-32); CREATININE 1.6 mg/dL (0.6-1.0); POTASSIUM 5.3 mmol/L (3.5-5.1); SGOT 21 U/L (15-37); SODIUM 127 mmol/L (136-145); TOTAL BILIRUBIN 0.6 mg/dL (<0.1-1.0); TOTAL PROTEIN 8.6 g/dL (6.4-8.2); TROPONIN-I <0.06 ng/mL (<0.06)
[2018-07-27 16:19] LABS: LIPASE 102 U/L (73-393); MAGNESIUM 2.4 mg/dL (1.8-2.4); SGPT 22 U/L (30-65)
[2018-07-27 16:22] LABS: GLUCOSE 610 mg/dL (74-106)
--- NOTE | 2018-07-27 20:00 | NUR ---
54 Y/O FEMALE PT ADMITTED TO ICU VIA W/C FROM ER WITH DKA. PT IS AWAKE AND ALERT. NEURO INTACT. DENIES PAIN NOR DISCOMFORT. WILL START INSULIN GTT.
[2018-07-27 22:48] LABS: ALBUMIN 3.3 g/dL (3.4-5.0); CALCIUM 8.7 mg/dL (8.5-10.1); CREATININE 1.1 mg/dL (0.6-1.0); TOTAL BILIRUBIN 0.6 mg/dL (<0.1-1.0); TOTAL PROTEIN 6.9 g/dL (6.4-8.2)
[2018-07-27 22:57] LABS: POTASSIUM 4.1 mmol/L (3.5-5.1)
[2018-07-28] VITALS (25 sets, daily range): BP systolic 133–169; BP diastolic 52–89
[2018-07-28 05:22] LABS: HEMATOCRIT 33.8 % (37.0-47.0); HEMOGLOBIN 11.3 gm/dL (12.0-15.0); MCH 29.5 pg (26.0-34.0); MCHC 33.6 g/dL (28.0-37.0); MCV 87.9 fL (80.0-100.0); RBC 3.85 mil/uL (4.20-5.00); RDW 14.2 % (10.5-14.5); WBC 6.9 thou/uL (4.0-11.0)
[2018-07-28 05:30] LABS: CALCIUM 8.7 mg/dL (8.5-10.1); CREATININE 1.1 mg/dL (0.6-1.0); MAGNESIUM 2.1 mg/dL (1.8-2.4); POTASSIUM 3.3 mmol/L (3.5-5.1)
--- NOTE | 2018-07-28 06:00 | NUR ---
PT RESTING QUIETLY. AWAKE AND ALERT. A DELIGHTLY LITTLE LADY. ACCUCHECK 124 INSULIN GTT AT 3 UNITS. UP TO TOILET. UO 1200 CC THIS SHIFT. VSS SINUS RHYTHM WILL CONT TO MONITOR CLOSELY.
[2018-07-28] MEDS ORDERED: LIDOCAINE1 EACH TRANSDERM (08:57)
[2018-07-28] MEDS ORDERED: FLEXERIL PO (08:57)
[2018-07-28] MEDS ORDERED: NEURONTIN 300300 M1 PO (08:57)
[2018-07-28 09:35] LABS: CALCIUM 8.7 mg/dL (8.5-10.1); CREATININE 1.1 mg/dL (0.6-1.0); MAGNESIUM 2.2 mg/dL (1.8-2.4); POTASSIUM 4.4 mmol/L (3.5-5.1)
--- NOTE | 2018-07-28 15:44 | NUR ---
PATIENT ASSESSMENT AND VITAL SIGNS DOCUMENTED. PATIENT INSULIN GTT WAS DISCONTINUED BY PHYSICIAN. GLUCOSE WAS MONITORED ORDERED, INSULIN SC WAS GIVEN. NURSE INFORMED PHYSICIAN OF HIGH READING, ORDERS RECEIVED TO GIVE SSI. THIS WAS DONE. THEN PHYSICIAN EXPRESSED TO START INSULIN GTT. NURSE INFORMED HER THAT SC DOSE WAS GIVEN ORDERED. SHE EXPRESSED CAN WAIT AN HOUR OR TWO TO RESTART INSULIN GTT. NURSE CHECKED PATIENTS BLOOD GLUCOSE THEN HER BLOOD GLUCOSE AND WANTED TO INITIATE THE INSULIN GTT HOWEVER BOTH IV'S WERE NO LONGER PATENT. IV TEAM WAS CALLED AND A NEW IV WAS STARTED. INSULIN GTT IS CURRENTLY INFUSING. ORDERS TO START DEXTROSE FLUIDS ONCE GLUCOSE IS LESS THAN 200. THIS WAS ALL INFORMED TO NEXT ON COMING SHIFT NURSE. PATIENT HAS BEEN KEPT UPDATED THROUGHOUT THE DAY AND HER DISCHARGE HAS BEEN CANCELLED.
[2018-07-28 17:53] LABS: CALCIUM 8.9 mg/dL (8.5-10.1); CREATININE 1.4 mg/dL (0.6-1.0); POTASSIUM 4.1 mmol/L (3.5-5.1)
--- NOTE | 2018-07-28 19:03 | NUR ---
ASSUMED CARE AT 15:45. PATIENT ON INSULIN GTT AT THAT TIME. BLOOD GLUCOSE MONITORED Q1HR. DR. ZHENG CONSULTED PER ORDERS. RECEIVED ORDERS FROM DR. ZHENG & IMPLEMENTED PER HIS REQUEST. PATIENT HEIGHT, WEIGHT, BLOOD GLUCOSE REPORTED TO DR. ZHENG. PATIENT REMAINS ON INSULIN GTT & DR. ZHENG ORDERS FOLLOWED. INFORMED ONCOMING NURSE OF THIS INFORMATION FOR SURGERY CENTER ADMINISTRATOR. PATIENT AWARE OF ORDERS. PATIENT UP TO TOILET & SINK WITH STEADY BALANCED GAIT. CALLS FOR ASSIST.
--- NOTE | 2018-07-28 21:59 | EKG ---
[place] [address] [facility] [employer] [place] [place] [address] ELECTROCARDIOGRAM REPORT Name: RONNI REYES Room #: 236-P ADM IN M.R.#: [id number] Admission: 07/27/18 Attend Phys: Felicita Kim MD Discharge: Date of : 51 Report #: [id number] THIS REPORT FOR: //name// 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: W[place] : 1955 Requested By: Vinod Wei Order Number: [id number] MD: Diogo Arguelles Measurements Intervals [place] Rate: 82 P: 61 WY: 119 QRS: 7 QRSD: 84 T: 45 QT: 357 QTc: 417 Interpretive Statements Sinus rhythm Borderline short W[place] interval Probable left atrial enlargement Compared to ECG 05/04/2018 11:30:27 No significant changes Electronically Signed On 07-28-2018 21:58:51 NETWORK COORDINATOR by Diogo Arguelles [email or web address] <ELECTRONICALLY SIGNED> By: Diogo Arguelles MD 07/28/18 2158 1507 150 Diogo Arguelles MD /KAVON
[2018-07-28 23:09] LABS: GLYCOHEMOGLOBIN (HGB A1C) 13.5 % (4.8-5.6)
[2018-07-29] VITALS (16 sets, daily range): BP systolic 113–195; BP diastolic 58–109
--- NOTE | 2018-07-29 01:51 | NUR ---
ASSUMED CARE OF PT AT 1900. PT CALM, ORIENTED, AND PLEASANT THROUGHOUT THE SHIFT. BLOOD GLUCOSE CHECKED HOURLY AND INSULIN GTT TITRATED ACCORDING TO DR. ZHENG'S ORDERS. REPORT OF PT'S BLOOD GLUCOSE AND PROGRESSION CALLED TO DR. ZHENG AT 2200. 15 UNITS OF LANTUS ORDERED AT THAT TIME, ONETIME. PT'S GRADUALLY INCREASED OVER THE FIRST FEW HOURS OF THE SHIFT. VENEER JOINTER HELPER CALLED WHEN AND RESTARTED PT ON HOME BP MED, CLONIDINE. DOSE GIVEN AT THAT TIME AND PT'S BP IS IMPROVING. PT REMAINS ON INSULIN GTT AND WILL CONTINUE TO FOLLOW THE PLAN OF CARE. WILL CONTINUE TO MONITOR.
[2018-07-29 05:52] LABS: POTASSIUM 3.7 mmol/L (3.5-5.1)
--- NOTE | 2018-07-29 09:25 | NUR ---
Received consult for pt admitted with DKA, A1C 13.5. On insulin drip. Senior Game Developer has ordered 1200 maribel carb contrlled diet, 3 meals and no snacks. Still in ICU. Will educate on diet once transferred out of ICU.
--- NOTE | 2018-07-29 11:16 | HC ---
[facility] [place] [address] CONSULTATION Name: RONNI REYES Room #: 236-P ADM IN M.R.#: [id number] Admission: 07/27/18 Attend Phys: Felicita Kim MD Discharge: Date of : 51 Report #: [id number] THIS REPORT FOR: //name// CC: Cindi Kim DATE OF SERVICE: 07/28/2018 ENDOCRINE CONSULTATION: The patient of Dr. Kim in the ICU room 236. HISTORY OF PRESENT ILLNESS: A 62-year-old black female with known "prediabetes" although details are not readily available. The patient states she is not sure of her most recent hemoglobin A1c. She was given metformin on one occasion for a short period of time, but it was discontinued for unknown reasons. The patient has not recently checked her glucose; however, she did have a steroid epidural earlier this week followed by extreme hyperglycemia necessitating her current admission. The patient has a family history of diabetes occurring in 2 sisters. She eats 3 meals per day and snacks frequently. She has limited activity. She has very limited information on prior hemoglobin A1c and has not done any recent glucose monitoring because she states that blood sugars were all below 110. Since admission, the patient has been treated with IV insulin drip, which was then discontinued. However, on limited subcutaneous insulin, the patient developed further hyperglycemia and insulin drip was restarted. It is currently at approximately 4 units per hour. The patient has received very limited intravenous hydration. OBJECTIVE: LABORATORY DATA: Admission glucose was approximately 610 and has been dropping rapidly with intravenous insulin. Most recent creatinine 1.1, potassium 4.4, the patient had an initial venous pH of 7.28, but no arterial pH. PHYSICAL EXAMINATION: GENERAL: Well-nourished, well-developed, obese 62-year-old black female in no acute distress. VITAL SIGNS: Afebrile, heart rate 95 and regular, blood pressure 150/75. SKIN: Warm and moist without abnormality. There is a slight decrease in skin turgor. The Remainder of physical exam is essentially as per prior notes. ASSESSMENT AND PLAN: 1. Diabetes mellitus with acute exacerbation due to epidural steroids. 2. Exogenous obesity with insulin resistance and hyperinsulinemia. 3. Moderate dehydration due to hyperglycemia. [address] [address] CONSULTATION Name: RONNI REYES Room #: 236-P [facility] M.R.#: [id number] Admission: 07/27/18 Attend Phys: Felicita Kim MD Discharge: Date of : 51 Report #: [id number] PLAN: 1. Will increase hydration to restore intervascular volume to appropriate levels. 2. Will continue intravenous insulin and slowly taper to subcutaneous doses as possible. 3. Will switch to caloric restriction diet and have patient instructed in proper dietary restriction tomorrow. The patient also advised to receive full outpatient diabetes education as possible. Thank you very much for this consultation. I will continue to follow the patient with you for management of diabetes mellitus out of control. <ELECTRONICALLY SIGNED> By: Philip Medina MD 07/29/18 1116 [id number] [id number] Philip Medina MD /nt
--- NOTE | 2018-07-29 12:03 | NUR ---
ASSUMED CARE OF PATIENT AT 0700, PT IS A/O TIMES FOUR, DENIES ANY PAIN OR DISCOMFORT. PT WITH STABLE VITAL SIGNS, SHE HAS BEEN AFIBRILE. CONTINUES ON INSULIN GTT PER DR ZHENG. ORDERS RCVD TO TRANSFER PT OUT OF ICU. REPORT CALLED AND GIVEN TO ACCEPTING NURSE.
[2018-07-30] VITALS (7 sets, daily range): BP systolic 120–157; BP diastolic 65–90
--- NOTE | 2018-07-30 05:56 | NUR ---
patient is alert and oriented. patient is up ad jonathon. patient is nsr on tele. patient is on an insulin drip. patient was given prune juice for constipation. patients lbm was the 5th. patient denies pain. patient is on room air. patient is resting comfortabley in bed. wcm. patient is progressing to goals.
--- NOTE | 2018-07-30 10:34 | NUR ---
INITIAL ASSESSMENT: Pt evaluated for d/c planning needs. Reviewed chart and spoke with nurse and pt. Pt is alert and oriented. Pt lives in house with spouse and was independent with ADL's prior to admission to the hospital. 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. Pt uses no DME and has not had home health in the past. Pt said she has no problems paying for her medications and has PCP. Pt plans on returning home on d/c from hospital. Will remain available to assist as needed.
--- NOTE | 2018-07-30 18:39 | NUR ---
INSULIN DRIP WAS DC AT NOON. SHE HAS DONE WELL WITHOUT IT. EDUCATED ON INSULIN AND DIABETES CONTROL. SHE STATES SHE IS NERVOUS ABOUT ALL OF THIS THIS IS NEW. REASSURED. SHE IS PLEASANT AND HAS RESTED IN ROOM MOST OF THE DAY. SHE WAS ENCOURAGED TO AMBULATE DURING THE DAY AND SHE DID. WILL CONT WITH PLAN OF CARE.
[2018-07-31] VITALS (7 sets, daily range): BP systolic 127–167; BP diastolic 70–83
--- NOTE | 2018-07-31 03:35 | NUR ---
ASSUMED PT CARE AROUND 1900. A&OX4. DENIES ANY PAIN OR SOA. UP AD LATONYA AROUND THE ROOM WTIH STEADY GAIT. VSS. DR ZHENG NOTIFIED OF BG RESULTS AT BEDTIME. INSULIN GIVEN ORDERED. PT HAS BEEN SLEEPING MOST OF THE NIGHT. RESP EVEN AND UNLABORED. PROGRESSING TOWARD POC GOALS. WILL CONTINUE TO MONITOR FURTHER.
--- NOTE | 2018-07-31 18:19 | NUR ---
care of pt assumed this am @ 0700. pt aox4. up ad jonathon w/ a steady, balanced and coordinated gait. pt received verbal education re: blood glucose checking w/ monitor (w/ pt taking her own at dinner time), insulin drawn up and given to self (w/ pt doing for herself at lunch and dinner) and dietary weight reduction diet (education from emergency response officer and rn). pt has received her medications from our inpt pharmacy and has spoken w/ an in house pharmacist prior to her going down stairs to pick them up. pt aware of her need to keep a diligent, organized log book of her blood glucose values taken 4x a day. pt verbalizes her nervousness re this new diagnosis and all that it entails (diet/blood glucose checks and insulin injections), but having done some of the care today she is more comfortable going home tonight. iv access dc'd. tele dc'd. at .
== END 2018-07-31 18:50 | disposition home or self-care (01) | DRG 638 ==
LOC: ER 14:29 → EROBS 16:25 → ICU 16:25 → 3W 07-29 11:42 → ENTRNSPT 07-31 18:47 → 3W 07-31 18:50
PROVIDERS: Emergency Medicine; Nurse Practitioner Acute Care; ADMIT Internal Medicine
DX: E11.10 Type 2 diabetes mellitus with ketoacidosis without coma (principal); N17.9 Acute kidney failure, unspecified; I10 Essential (primary) hypertension; E03.9 Hypothyroidism, unspecified; K21.9 Gastro-esophageal reflux disease without esophagitis; T38.0X5A Adverse effect of glucocorticoids and synthetic analogues, initial encounter; E66.09 Other obesity due to excess calories; E86.0 Dehydration; E11.65 Type 2 diabetes mellitus with hyperglycemia; G89.29 Other chronic pain; M54.5 Low back pain; Z90.710 Acquired absence of both cervix and uterus; Z87.891 Personal history of nicotine dependence; Z79.899 Other long term (current) drug therapy; Z68.32 Body mass index [BMI] 32.0-32.9, adult; Y92.89 Other specified places as the place of occurrence of the external cause; Z80.0 Family history of malignant neoplasm of digestive organs
CPT/HCPCS: 10078; 10879

== ENCOUNTER → 2018-10-02 | Outpatient (CLI) | payer OTHER | LOC: RAD 14:54 | DX: Z12.31 Encounter for screening mammogram for malignant neoplasm of breast (principal) ==

== ENCOUNTER → 2019-01-09 | Outpatient (CLI) | payer OTHER | LOC: CAT 07:48 | DX: J01.91 Acute recurrent sinusitis, unspecified (principal); J34.89 Other specified disorders of nose and nasal sinuses ==

== ENCOUNTER → 2019-01-09 | Outpatient (CLI) | payer OTHER | LOC: CAT 07:55 | DX: Z13.6 Encounter for screening for cardiovascular disorders (principal); E78.00 Pure hypercholesterolemia, unspecified; Z82.49 Family history of ischemic heart disease and other diseases of the circulatory system ==

== ENCOUNTER → 2019-05-23 | Outpatient (CLI) | payer OTHER | LOC: ULTRA 08:11 | DX: I10 Essential (primary) hypertension (principal) ==

== ENCOUNTER 2019-09-01 12:57 | Emergency (ER) | payer OTHER ==
[~2019-09-01] VITALS: Ht 157.5 cm; Wt 87.1 kg
--- NOTE | ~2019-09-01 | EKG ---
[facility] [address] [place] [address] ELECTROCARDIOGRAM REPORT Name: RONNI REYES Room #: PRE M.R.#: [id number] Admission: Attend Phys: Discharge: Date of : 51 Report #: [id number] THIS REPORT FOR: cc: Davida Valiente DNP, Mary E. DNP Epiphany, Epiphany MD ~ THIS REPORT FOR: //name// [facility] ED Test Date: 2019-09-01 Test Time: 15:11:24 Pat Name: RONNI REYES Department: Room: Gender: F Clinical Psychology Professor: : [id number] Requested By: Myrna Serra Order Number: [id number] MD: Measurements Intervals [place] Rate: 68 P: 69 MD: 129 QRS: 27 QRSD: 95 T: 43 QT: 402 QTc: 428 Interpretive Statements Sinus rhythm Compared to ECG 07/27/2018 15:07:59 No significant changes [email or web address] By: 10 10 Lore Torrez MD /EPI
[2019-09-01] MEDS ORDERED: BENZONATATE200 MG PO (13:33)
[2019-09-01] MEDS ORDERED: PREDNISONE 20 M20 MG PO (13:33)
[2019-09-01] MEDS ORDERED: ALBUTEROL2.5 MG/0.1 INH (13:33)
[2019-09-01 15:24] LABS: ABSOLUTE NEUTROPHILS 4.5 thou/uL (1.4-8.2); EOSINOPHILS 2.5 % (0.0-3.0); HEMATOCRIT 39.8 % (37.0-47.0); LYMPHOCYTES 27.5 % (24.0-44.0); MCH 29.4 pg (26.0-34.0); MCHC 32.7 g/dL (28.0-37.0); MCV 89.9 fL (80.0-100.0); MONOCYTES 5.4 % (1.0-8.0); PLATELET COUNT 362 thou/uL (150-400); POLYS 63.6 % (36.0-66.0); RBC 4.43 mil/uL (4.20-5.00); RDW 13.5 % (10.5-14.5)
[2019-09-01 15:31] LABS: ANION GAP 12 mmol/L (7-16); BUN 22 mg/dL (7-18); CALCIUM 9.3 mg/dL (8.5-10.1); CHLORIDE 104 mmol/L (98-107); CO2 23 mmol/L (21-32); CREATININE 1.2 mg/dL (0.6-1.0); GLUCOSE 96 mg/dL (74-106); POTASSIUM 4.3 mmol/L (3.5-5.1); SODIUM 139 mmol/L (136-145)
[2019-09-01 15:41] LABS: ALBUMIN 4.2 g/dL (3.4-5.0); SGOT 21 U/L (15-37); SGPT 30 U/L (30-65); TOTAL BILIRUBIN 0.3 mg/dL (<0.1-1.0); TOTAL PROTEIN 8.5 g/dL (6.4-8.2); TROPONIN-I <0.06 ng/mL (<0.06)
[2019-09-01] MEDS ORDERED: LANTUS SUBQ (16:15)
[2019-09-01 18:23] VITALS: BP 151/76
== END 2019-09-01 18:24 | disposition home or self-care (01) ==
LOC: ER 12:57
PROVIDERS: Nurse Practitioner
DX: I10 Essential (primary) hypertension (principal); E11.9 Type 2 diabetes mellitus without complications; E03.9 Hypothyroidism, unspecified; K21.9 Gastro-esophageal reflux disease without esophagitis; Z79.4 Long term (current) use of insulin; Z90.710 Acquired absence of both cervix and uterus; Z87.891 Personal history of nicotine dependence

== ENCOUNTER → 2020-09-23 | Outpatient (CLI) | payer OTHER ==
[~2020-09-23] MED LIST changes: +ALBUTEROL2.5 MG/0.1 INH; +BENZONATATE200 MG PO; +LANTUS SUBQ
== END ==
LOC: BC 10:27
PROVIDERS: ATTEND Family Medicine
DX: Z12.31 Encounter for screening mammogram for malignant neoplasm of breast (principal)